=== PATIENT | male | born 2000 | race Caucasian/White ===

== ENCOUNTER → 2025-02-27 | Outpatient (CLI) | payer OTHER, SELFPAY ==
--- NOTE | 2025-02-27 12:32 | NM_ITS ---
PROCEDURE: GASTRIC EMPTYING STUDY 02/27/2025 REASON FOR EXAM: N/V COMPARISON: None TECHNIQUE: The patient ingested a standard meal of oatmeal, radiopharmaceutical and water. There was no vomiting postprandially. Anterior and posterior planar images of the upper abdomen were obtained for 1 minute immediately following the meal at 1h, 2h and 4h if more than 10% of the activity persisted within the stomach. Regions of interest were drawn, and a geometric mean was used to calculate a [id number]. RADIOPHARMACEUTICAL: Sulfur colloid DOSE 1mCi FINDINGS: Percent activity remaining in stomach: 1 hour 24 % (normal 37-90%) NM/Gastric Emptying Study IMPRESSION: Normal gastric emptying. Reading Location: [facility]
== END | disposition home or self-care (01) ==
LOC: NM 12:31
DX: K59.00 Constipation, unspecified (principal); R11.2 Nausea with vomiting, unspecified
CPT/HCPCS: 78264; A9541